=== PATIENT | male | born 1960 | race Caucasian/White ===

== ENCOUNTER 2023-04-09 09:59 | Outpatient (CLI) | payer OTHER, SELFPAY ==
--- NOTE | ~2023-04-09 | CT_ITS ---
EXAMINATION: CT soft tissue neck chest w DATE: 04/09/2023 10:32 INDICATION: Paralysis of vocal cords. TECHNIQUE: Computed tomography (CT) of the neck and chest was performed with 75 mL Omnipaque-350 intr avenous contrast. Automated exposure control and iterative reconstruction technique were employed. Th e dose-length product was 850.80 mGy-cm. COMPARISON: None FINDINGS: CT NECK: There is plaque in the proximal internal carotid arteries with less than 50% stenosis relati ve to normal distal artery lumen diameters. There are no pathologically enlarged lymph nodes in the n [place]. There is severe cervical spondylosis. CT CHEST: There is mild emphysema. There is mild atelectasis bilaterally. There is mild scarring at t he lung apices. There is a 2.9 x 2.6 cm nodule in left lung upper lobe that is contiguous with left h ilar and mediastinal lymphadenopathy. The lymphadenopathy exerts mass effect on left main pulmonary a rtery. There is separate lymphadenopathy in left superior mediastinum. There are tree-in-bud opacitie s in left lung upper lobe, consistent with postobstructive pneumonia. No pleural effusion. There is a moderate-sized sliding hiatal hernia. The heart size is normal. There are coronary artery calcificat ions. No pericardial effusion. There is an 8 mm cyst in the liver. There is thickening of the adrenal glands. There is mild thoracic spondylosis. IMPRESSION: 1. Nodule in left lung upper lobe and left hilar and mediastinal lymphadenopathy, consistent with [facility] bronchogenic carcinoma and metastatic disease. 2. Mild postobstructive pneumonia in left lung upper lobe. 3. Mild emphysema. 4. Thickening of the adrenal glands, which is indeterminate for metastatic disease. Reviewed, dictated and finalized at location [facility]. [employer] IMPRESSION: 1. Nodule in left lung upper lobe and left hilar and mediastinal lymphadenopath y, consistent with primary bronchogenic carcinoma and metastatic disease. 2. Mild postobstructive pneumonia in left lung upper lobe. 3. Mild emphysema. 4. Thickening of the adrenal glands, which is indeterminate for metastatic dise ase.
[2023-04-09 10:19] LABS: Estimated Glomerular Filt Rate > 60
== END 2023-04-09 10:00 ==
PROVIDERS: PCP Otolaryngology; Visit Provider Otolaryngology
DX: J38.01 Paralysis of vocal cords and larynx, unilateral (principal); J43.9 Emphysema, unspecified; R91.1 Solitary pulmonary nodule
CPT/HCPCS: 70491; 71260; Q9967

== ENCOUNTER 2024-05-13 10:09 | Emergency (ER) | payer OTHER, SELFPAY ==
[2024-05-13 10:18] VITALS: BP 73/49; PULSE 116; RESP 20; TEMP 36.4; O2SAT 100
--- NOTE | 2024-05-13 10:25 | PC.NURSE ---
in br to obtain ua spec.
[2024-05-13 10:27] VITALS: BP 87/53
--- NOTE | 2024-05-13 10:29 | ED_ITS ---
HPI - Male Genitourinary General Chief complaint: Urogenital-Male Stated complaint: Urinary Problem Time Seen by Provider: 05/13/24 10:29 Source: patient and RN notes reviewed Mode of arrival: ambulatory Limitations: no limitations History of Present Illness HPI Narrative: 63-year-old male with a history of lung/ liver cancer, COPD, [place] presented for complaint of dizziness and nausea for 5 days. He endorses last night he walked 20 feet then blacked out and struck the left chin on the ground. States he may have been unconscious for 30 seconds, his daughter was with pt and assisted him to the couch. States he contacted PCP sometime yesterday and was advised to get evaluated but he says I felt too sick. . Patient is undergoing chemotherapy at [facility]. Has not taken his blood pressure medication today. Endorses decreased PO intake for 5 days. States urine is dark with a foul odor. Patient currently denies headache, chest pain, palpitations, abdominal pain, or neck pain. Pt returned from [place] 2 days ago via air travel. Related Data Home Medications ?Medication ?Instructions ?Recorded ?Confirmed ?Last Taken ?Type albuterol sulfate 90 mcg/actuation inhalation 05/13/24 Unknown History aerosol inhaler ezetimibe 10 mg tablet mg 05/13/24 Unknown History gabapentin 100 mg capsule mg 05/13/24 Unknown History gabapentin 300 mg capsule mg 05/13/24 Unknown History lidocaine-prilocaine 2.5 %-2.5 % 05/13/24 Unknown History topical cream losartan 50 mg tablet mg 05/13/24 Unknown History naloxone 4 mg/actuation nasal spray intranasal 05/13/24 Unknown History ondansetron HCl 4 mg tablet mg 05/13/24 Unknown History oxycodone-acetaminophen 5 mg-325 tablet 05/13/24 Unknown History mg tablet prochlorperazine maleate 10 mg mg 05/13/24 Unknown History tablet rosuvastatin 40 mg tablet mg 05/13/24 Unknown History sildenafil 100 mg tablet mg 05/13/24 Unknown History tiotropium 2.5 mcg-olodaterol 2.5 inhalation 05/13/24 Unknown History mcg/actuation mist for inhalation (Stiolto Respimat) vitamin b6 05/13/24 Unknown History Allergies Allergy/AdvReac Type Severity Reaction Status Date / Time No Known Allergies Allergy Verified 05/13/24 10:23 Review of Systems Review of Systems: CONSTITUTIONAL: Denies body aches, fever, chills, or sweats. EYES: Denies visual changes, redness, or discharge. ENT: Denies rhinorrhea, congestion, sore throat, or otalgia. CARDIOVASCULAR: Denies chest pain, palpitations, or edema. RESPIRATORY: Denies cough or dyspnea. GASTROINTESTINAL: Denies abdominal pain, vomiting, or diarrhea. reports nausea, GENITOURINARY: Reports dark foul smelling urine Denies dysuria or hematuria. SKIN: Reports left chin bruise. MUSCULOSKELETAL: Denies back pain, joint pain, or myalgia. NEUROLOGIC: Endorses dizziness denies headache, numbness, tingling, or asymmetrical weakness All systems reviewed & are unremarkable except as noted in HPI and below PMFSH Past Medical History Medical History (Updated 05/13/24 @ 11:01 by Virginia Crawford APRN) Myocardial infarct COPD (chronic obstructive pulmonary disease) Secondary liver cancer Metastatic lung cancer (metastasis from lung to other site) Social History Social History (Updated 05/13/24 @ 10:58 by Virginia Crawford APRN) Smoking status: Former smoker Comments At time of signature, I have reviewed and agree with nursing past medical, surgical, social and family history unless otherwise noted. Please see nursing chart for further information. There is no relevant family history pertinent to the presenting complaint Exam Narrative: GENERAL: chronically ill-appearing; generalized weakness HEAD: Left mandible abrasion EYES: PERRLA, EOMI. ENT: Mucous membranes pink and moist. Hoarse voice NECK: Normal AROM. CHEST: No respiratory distress. Clear to auscultation. HEART: Tachycardic and regular rhythm. No murmur appreciated. Normal peripheral pulses. ABDOMEN: Soft, nontender, nondistended, normal active bowel sounds. EXTREMITIES: Normal range of motion. No edema. Using w/c for weakness. SKIN: Warm, dry, no rash. Capillary refill normal. Normal skin turgor. NEURO:No focal deficits. Alert and oriented x3. EOMs intact without nystagmus. No facial droop/asymmetry noted bilaterally. Grimace intact. PSYCH: Normal affect. Course Course Emergency Course: Patient is aware of diagnosis, understands and agrees to treatment plan. Anticipatory guidance given. Patient agrees to follow-up as directed and is aware of reasons to seek care at the emergency department. Portions of this record may have been created with voice recognition software Level of Care: Express Care Visit Vital Signs Vital signs: Vital Signs Temperature 97.6 F 05/13/24 10:18 Pulse Rate 116 H 05/13/24 10:18 Respiratory Rate 20 05/13/24 10:18 Blood Pressure 73/49 L 05/13/24 10:18 Pulse Oximetry 100 05/13/24 10:18 Oxygen Delivery Room Air 05/13/24 10:18 Temperature 97.6 F 05/13/24 10:18 Pulse Rate 116 H 05/13/24 10:18 Respiratory Rate 20 05/13/24 10:18 Blood Pressure 87/53 L 05/13/24 10:27 Pulse Oximetry 100 05/13/24 10:18 Oxygen Delivery Room Air 05/13/24 10:18 Transfer Transfered to: [facility] Transportation: Other (private vehicle) Transfer rationale: Pt is agreeable to transfer. [facility] via private vehicle; refused ambulance. Risks of transportation reviewed with pt including injury, worsening of condition and . v/u. dtr will be driving pt; Report called to hospital, spoke with Staci RN, Dr Baker, accepting physician. Pt is in stable condition at time of transfer. Advised to remain NPO and go directly to the hospital. MDM - Male Genitourinary MDM Narrative Medical decision making narrative: patient with lung cancer, Mets to the liver presented with dizziness, nausea and syncopal episode yesterday. Hypotensive and tachycardic on arrival; awake and alert. BP rechecked 99/61. Advised ER transfer. Requests [facility]. Differential Diagnosis Differential diagnosis: Likely other (anemia, dehydration, sepsis, arrhythmia, BPPV, labyrinthitis, vestibular neuritis, sinusitis, CVA, migraine, STEMI, AAA, PE, pneumothorax, cardiac tamponade, esophageal rupture, pneumonia, GERD, musculoskeletal pain, endocarditis, pericarditis, URI, bronchitis, anxiety) ECG Data EKG #1: Attestation: I personally reviewed and interpreted this ECG as follows: (ST 109 MO 150, QRS 125, QT/QTC 314/378) ECG completion date: 05/13/24 ECG completion time: 10:43 Prior ECG tracings: not available for review EKG Interpretation: tachycardia Discharge Plan Discharge Clinical Impression: Acute hypotension Patient Disposition: Acute Care Hospital Condition: Stable Patient Language: Wolof Prescriptions: No Action losartan 50 mg tablet sildenafil 100 mg tablet gabapentin 300 mg capsule gabapentin 100 mg capsule albuterol sulfate 90 mcg/actuation HFA aerosol inhaler INHALATION ezetimibe 10 mg tablet rosuvastatin 40 mg tablet Stiolto Respimat 2.5-2.5 mcg/actuation mist INHALATION ondansetron HCl 4 mg tablet prochlorperazine maleate 10 mg tablet lidocaine-prilocaine 2.5-2.5 % cream oxycodone-acetaminophen 5-325 mg tablet naloxone 4 mg/actuation spray,non-aerosol INTRANASAL vitamin b6 Follow-up/Referrals: PHYSICIAN NOT ON STAFF,NONSTAFF [Primary Care Provider] - Time of Disposition: 11:01 Quality [place] Coma Scale Verbal: Oriented and Alert Motor: Follows Commands Acute Stroke Pre-Treatment Evaluation Acute Ischemic Stroke Pretreatment Evaluation: Acute Ischemic Stroke Pre- Treatment Evaluation Inclusion Criteria (must answer yes to questions 1 and 2) 1. Age 18 Years Or Older: No 2. Onset Of Stroke Symptoms Well Established To Be Less Than 3 Hours: No 3. Clinical Diagnosis Of Ischemic Stroke Causing Measureable Neurological Deficit And A Non-Contrast Head CT Showing NO Hemorrage: No Contraindications (0-3 Hours) 5. Stroke Or Severe Head Trauma Within Past 3 Months: No 6. Known History Of Intracranial Hemorrage: No 7. Symptoms Or Clinical Presentation Suggestion Of Subarachnoid hemorrhage: No 8. Gastrointestinal Or Urinary Tract hemorrhage Within 21 Days: No 9. Prothrombin Time (TP) Greater Than 15 Seconds or An INR Greater Than 1.7 Or An Elevated Activated Partial Throboplastin Time (aPTT): No 10. Platelet Count <100,000/ml: No 11. Glucose Lower Than 50mg/dl Or Greater than 400mg/dl: No 12. Seizure At Onset Stroke: No 13. Acute Myocardial Infarction Or Post Myocardial Infarction Pericarditis: No 14. Arterial Puncture At A Non-Compressible Site, Biopsy of Internal Organ, Within The Preceding 7 Days: No 15. Major Surgery Or Serious Trauma (Besides Head) In The Previous 14 Days: No 16. Uncontrolled Or Sustained SBP (systolic>185 mmHg) or DBP (diastolic>110 mmHg) Or Requiring Aggressive Treatment To Lower: No 17. : No Contraindications (3-4.5 Hours) 1. Age Less Than 18 or Greater Than 80 years: No 2. Severe Stroke Assessed Clinically (NIHSS Score Greater Than 25): No 3. Combination Or Previous Stroke Or Diabetes Mellitus: No 4. Symptoms Minor Or Rapidly Improving: No
--- NOTE | 2024-05-13 10:48 | ECG_ITS ---
Test Date: 2024-05-13 10:43:44 Measurements Intervals [place] Rate: 109 P: 75 NV: 150 QRS: 70 QRSD: 125 T: 46 QT: 314 QTc: 423 Interpretive Statements SINUS TACHYCARDIA RIGHT BUNDLE BRANCH BLOCK [120+ ms QRS DURATION, UPRIGHT V1, 40+ ms S IN I/aVL/V4/V5/V6] WARNING: DATA QUALITY MAY AFFECT INTERPRETATION No previous ECG available for comparison Electronically Signed On 05-14-2024 09:54:45 [employer] by Ricardo Alvarez M.D.
--- NOTE | 2024-05-13 10:58 | PC.NURSE ---
report to [facility] by hosp[facility] chaplain [id number]. declined ems transfer and is calling daughter to provide transportation. last ate yesterday.
--- NOTE | 2024-05-13 10:59 | PC.NURSE ---
bp recheck right arm monitor 99/61, hr 110, and ekg in progress.
== END 2024-05-13 11:05 | disposition short-term general hospital (02) ==
PROVIDERS: Emergency Provider Nurse Practitioner Family
DX: I95.9 Hypotension, unspecified (principal); R00.0 Tachycardia, unspecified; I45.10 Unspecified right bundle-branch block; J44.9 Chronic obstructive pulmonary disease, unspecified; C34.90 Malignant neoplasm of unspecified part of unspecified bronchus or lung; C78.7 Secondary malignant neoplasm of liver and intrahepatic bile duct; Z79.60 Long term (current) use of unspecified immunomodulators and immunosuppressants; I25.2 Old myocardial infarction; Z87.891 Personal history of nicotine dependence
CPT/HCPCS: 93005; 99212; G0463